=== PATIENT | female | born 1955 ===

== ENCOUNTER 2017-04-16 14:55 | Inpatient (IN) | payer OTHER ==
--- NOTE | 2017-04-16 17:22 | C.PDOC ---
History Of Present Illness 61 yr old female with PMHx of anxiety and HTN, presents to the ER with complaints of chest pain and SOB since morning. Patient states she was seen earlier at another institution and was discharged home. States afterwards she went to go see her psychiatrist who sent her to the ER for evaluation. Denies fever, chills, nausea, vomiting, weakness or numbness. Time Seen by Provider: 04/16/17 17:16 Chief Complaint (Nursing): Shortness Of Breath History Per: Patient History/Exam Limitations: no limitations Onset/Duration Of Symptoms: Sudden Onset (since morning) Past Medical History Reviewed: Historical Data, Nursing Documentation, Vital Signs Vital Signs: Last Vital Signs Temp 98.0 F 04/16/17 15:38 Pulse 91 H 04/16/17 20:33 Resp 18 04/16/17 20:33 BP 146/83 04/16/17 20:33 Pulse Ox 100 04/16/17 21:47 - Medical History PMH: Anxiety, Depression, HTN, Hypercholesterolemia Surgical History: Tonsillectomy Family History: States: No Known Family Hx - Social History Hx Alcohol Use: No Hx Substance Use: No - Immunization History Hx Tetanus Toxoid Vaccination: (unk) Hx Influenza Vaccination: No Hx Pneumococcal Vaccination: Yes (2016) Review Of Systems Except As Marked, All Systems Reviewed And Found Negative. Constitutional: Negative for: Fever, Chills Cardiovascular: Positive for: Chest Pain Respiratory: Positive for: Shortness of Breath Gastrointestinal: Negative for: Nausea, Vomiting Neurological: Negative for: Weakness, Numbness Physical Exam - Physical Exam Appears: Non-toxic, No Acute Distress Skin: Warm, Dry, No Rash Oral Mucosa: Moist Chest: Symmetrical, No Tenderness Cardiovascular: Rhythm Regular, No Murmur Respiratory: Normal Breath Sounds, No Rales, No Rhonchi, No Stridor, No Wheezing Gastrointestinal/Abdominal: Normal Exam, Soft, No Tenderness, No Guarding, No Rebound Extremity: Normal ROM, No Swelling Neurological/Psych: Oriented x3, Normal Speech, Normal Motor ED Course And Treatment - Laboratory Results Result Diagrams: 04/16/17 17:56 04/16/17 17:56 ECG: Interpreted By Me, Viewed By Me ECG Rhythm: Sinus Rhythm Interpretation Of ECG: No ST/T wave changes. Rate From EC (BPM) O2 Sat by Pulse Oximetry: 100 (RA) Pulse Ox Interpretation: Normal - CT Scan/US CTA Chest Other Rad Studies (CT/US): Interpreted By Me, Read By Radiologist CT/US Interpretation: EXAM DATE/TIME: 04/16/2017 6:35 PM. . CLINICAL HISTORY: 61 years old, female; Pain; Chest pain; Type not specified; Additional info: SOB elevated dimer. . TECHNIQUE: Axial computed tomographic angiography images of the chest with intravenous. contrast using pulmonary embolism protocol. All CT scans at this facility use. one or more dose reduction techniques, viz.: automated exposure control; ma/kV. adjustment per patient size (including targeted exams where dose is matched to. indication; i.e. head) ; or iterative reconstruction technique. MIP reconstructed images were created and reviewed. Coronal and sagittal reformatted images were created and reviewed. . CONTRAST: 100 mL of VISIPAQUE 320 administered intravenously. . COMPARISON: There are no prior studies for comparison. . FINDINGS: Artifacts: Motion artifact degrades image quality. Heart, aorta and Pulmonary arteries: Heart size is at the upper limits of. normal.There is trace fluid in pericardial recesses.There is no aneurysm or. dissection.There are vascular calcifications. There are no central pulmonary. emboli. Motion and bolus timing limits evaluation of peripheral vessels.. . Lungs: Trachea and main bronchi are patent.There is no pneumothorax. There. is no lobar or segmental consolidation. There is dependent atelectasis. There. are no effusions. . Thyroid: Thyroid is unremarkable. Bones/joints: There are degenerative changes in the osseus structures. Soft tissues: unremarkable. Lymph nodes: unremarkable. Upper abdomen: There are no acute abnormalities in the visualized portion of. the abdomen. There is fatty infiltration of the liver. There is a small cyst in. the dome of the liver on the right. Spleen is heterogeneous most likely due to. flow.Pancreas is atrophic with fatty infiltration. . IMPRESSION: No aneurysm, dissection or central pulmonary embolus, limited. evaluation of peripheral vessels due to patient motion and bolus timing; no. focal pneumonia. . Additional nonemergent findings as described above. - Physician Consult Information Time Consulting Physician Contacted: 21:15 Physician Contacted: Mignon Bernabe Outcome Of Conversation: Dr. Bernabe is bedside with patient and agrees upon admission of patient. Will obtain VQs in morning. Medical Decision Making Medical Decision Making: cp r/o acs, pe - PLAN: * CXR * EKG * Troponin * CBC * CMP * BNP * Urinalysis pt reaessesed sleeping innad. see nby dr chapman and dr bernabe bedside. accept for admission .suboptimal bolus of ct with lovenox obtain v/q in am Disposition - Disposition Disposition: HOSPITALIZED Disposition Time: 21:47 Condition: STABLE - Clinical Impression Clinical Impression: Chest pain, Elevated d-dimer - Scribe Statement The provider has reviewed the documentation as recorded by the Scribe Adriane Blas Provider Attestation: All medical record entries made by the Scribe were at my direction and personally dictated by me. I have reviewed the chart and agree that the record accurately reflects my personal performance of the history, physical exam, medical decision making, and the department course for this patient. I have also personally directed, reviewed, and agree with the discharge instructions and disposition. Decision To Admit - Pt Status Changed To: Hospital Disposition Of: Observation - . Bed Request Type: Telemetry Admitting Physician: Mignon Bernabe Patient Diagnosis: Chest pain, Elevated d-dimer
[2017-04-16 17:59] LABS: BASO # 0.1 K/uL (0.0-0.2); BASO % 0.8 % (0.0-2.0); HEMOGLOBIN 11.7 g/dL (11.0-16.0); LYMPH # 0.6 K/uL (1.0-4.3); LYMPH % 7.3 % (20.0-40.0); MEAN CELL VOLUME 82.3 fL (81.0-99.0); MEAN CORPUSCULAR HEMOGLOBIN 28.5 pg (27.0-31.0); MEAN CORPUSCULAR HGB CONC 34.6 g/dL (33.0-37.0); MEAN PLATELET VOLUME 8.6 fL (7.2-11.7); MONO # 0.2 K/uL (0.0-0.8); MONO % 2.4 % (0.0-10.0); NEUT # 7.4 K/uL (1.8-7.0); NEUT % 89.5 % (50.0-75.0); PLATELET COUNT 324 K/uL (130-400); RBC 4.12 Mil/uL (3.80-5.20); RED CELL DISTRIBUTION WIDTH 12.8 % (11.5-14.5); WHITE BLOOD COUNT 8.3 K/uL (4.8-10.8)
[2017-04-16 18:15] LABS: INR 1.2; PROTHROMBIN TIME 13.3 SECONDS (9.7-12.2)
[2017-04-16] MEDS ORDERED: Albuterol-Ipratrop 3 mg / 0.5 (3 ml) UD ONE (18:24)
[2017-04-16 18:34] LABS: ALB/GLOB RATIO 1.3 (1.0-2.1); ALBUMIN 4.1 g/dL (3.5-5.0); ALT/SGPT 42 U/L (9-52); AST/SGOT 30 U/L (14-36); BLOOD UREA NITROGEN 13 mg/dL (7-17); CALCIUM 9.7 mg/dl (8.6-10.4); GFR AFRICAN-AMERICAN > 60; GFR NON-AFRICAN AMERICAN 56
[2017-04-16] MEDS ORDERED: Potassium Chloride 20 mEq ER Tab PO STA (18:35)
[2017-04-16] MEDS ORDERED: Potassium Chloride 20 mEq ER Tab PO ONE (19:14)
[2017-04-16 19:23] LABS: B-TYPE NATRIURETIC PEPTIDE 346 pg/mL (0-900)
[2017-04-16] MEDS ORDERED: Iodixanol 320 MG/ML 100 ML BOTTLE IV ONE (19:23)
[2017-04-16 19:29] LABS: SQUAMOUS EPITHIAL 1 /hpf (0-5); URINE BACTERIA RARE (<OCC); URINE BILIRUBIN NEGATIVE (NEGATIVE); URINE BLOOD NEGATIVE (NEGATIVE); URINE CLARITY Hazy (Clear); URINE COLOR Amber (YELLOW); URINE GLUCOSE (UA) NORMAL (Normal); URINE HYALINE CAST >20 /lpf (0-2); URINE LEUKOCYTE ESTERASE NEG Leu/uL (Negative); URINE NITRATE NEGATIVE (NEGATIVE); URINE PROTEIN 1+ mg/dL (NEGATIVE); URINE UROBILINOGEN NORMAL mg/dL (0.2-1.0)
[2017-04-16 19:40] LABS: BANDS 2 % (0-2); LYMPHOCYTE 9 % (20-40); MONOCYTE 7 % (0-10); NEUTROPHIL 82 % (50-75); PLATELET ESTIMATE NORMAL (NORMAL); TOTAL CELLS COUNTED 100
--- NOTE | 2017-04-16 21:14 | CT ---
EXAM: CT Angiography Chest With Intravenous Contrast EXAM DATE/TIME: 04/16/2017 6:35 PM CLINICAL HISTORY: 61 years old, female; Pain; Chest pain; Type not specified; Additional info: SOB elevated dimer TECHNIQUE: Axial computed tomographic angiography images of the chest with intravenous contrast using pulmonary embolism protocol. All CT scans at this facility use one or more dose reduction techniques, viz.: automated exposure control; ma/kV adjustment per patient size (including targeted exams where dose is matched to indication; i.e. head); or iterative reconstruction technique. MIP reconstructed images were created and reviewed. Coronal and sagittal reformatted images were created and reviewed. CONTRAST: 100 mL of VISIPAQUE 320 administered intravenously. COMPARISON: There are no prior studies for comparison. FINDINGS: Artifacts: Motion artifact degrades image quality. Heart, aorta and Pulmonary arteries: Heart size is at the upper limits of normal.There is trace fluid in pericardial recesses.There is no aneurysm or dissection.There are vascular calcifications. There are no central pulmonary emboli. Motion and bolus timing limits evaluation of peripheral vessels.. Lungs: Trachea and main bronchi are patent.There is no pneumothorax. There is no lobar or segmental consolidation. There is dependent atelectasis. There are no effusions. Thyroid: Thyroid is unremarkable Bones/joints: There are degenerative changes in the osseus structures. Soft tissues: unremarkable Lymph nodes: unremarkable Upper abdomen: There are no acute abnormalities in the visualized portion of the abdomen. There is fatty infiltration of the liver. There is a small cyst in the dome of the liver on the right. Spleen is heterogeneous most likely due to flow.Pancreas is atrophic with fatty infiltration IMPRESSION: No aneurysm, dissection or central pulmonary embolus, limited evaluation of peripheral vessels due to patient motion and bolus timing; no focal pneumonia Additional nonemergent findings as described above.
[2017-04-16] MEDS ORDERED: Enoxaparin 150 mg Syringe SC STA (21:17)
[2017-04-16] MEDS ORDERED: Enoxaparin 80 mg Syringe ONE (21:28)
[2017-04-17] MEDS ORDERED: MethylPREDNISolone 40 mg Vial ONE (04:09)
[2017-04-17] MEDS: MethylPREDNISolone 40 mg Vial IVP SCH ×3 (04:10→21:32)
[2017-04-17] MEDS: Albuterol-Ipratrop 3 mg / 0.5 (3 ml) UD INH SCH ×4 (04:30→20:04)
[2017-04-17 05:42] LABS: HDL CHOLESTEROL 36 mg/dL (30-70)
[2017-04-17 05:56] LABS: TOTAL IRON BINDING CAPACITY 309 ug/dL (250-450)
[2017-04-17 06:07] LABS: % IRON SATURATION 21 (20-55); IRON 64 ug/dL (37-170); LDL CHOLESTEROL 111 mg/dL (0-129)
--- NOTE | 2017-04-17 06:34 | RAD ---
Chest x-ray single frontal view History: Chest pain. Comparison: None available. Findings: No focal infiltrate or effusion. Heart size within normal limits. Impression: No focal infiltrate or effusion.
--- NOTE | 2017-04-17 08:06 | CP.PCM.CON ---
History of Present Illness - History of Present Illness History of Present Illness: CC: Chest Pain HPI: 61 F presented to [facility] ER for chest pain. Chest pain atypical and non exertional. States she was in a different ER this morning and was sent home. Sugey has hx of DM, HTN and hyperlipidemia. Denies fever, chills and cough Review of Systems - Constitutional Constitutional: Chills, Headache - EENT Eyes: Blurred Vision - Cardiovascular Cardiovascular: Chest Pain - Respiratory Respiratory: Dyspnea - Gastrointestinal Gastrointestinal: absent: Abdominal Pain - Musculoskeletal Musculoskeletal: Myalgias Past Patient History - Past Social History Smoking Status: Never Smoked - CARDIAC Hx Hypercholesterolemia: Yes Hx Hypertension: Yes - ENDOCRINE/METABOLIC Hx Diabetes Mellitus Type 1: Yes - PSYCHIATRIC Hx Anxiety: Yes Hx Depression: Yes Hx Substance Use: No - SURGICAL HISTORY Hx Tonsillectomy: Yes - ANESTHESIA Hx Anesthesia: Yes Hx Anesthesia Reactions: No Meds Allergies/Adverse Reactions: Allergies Allergy/AdvReac Type Severity Reaction Status Date / Time No Known Allergies Allergy Unverified 04/16/17 15:44 - Medications Medications: Current Medications Acetaminophen (Tylenol 325mg Tab) 650 mg PO Q4H PRN PRN Reason: pain fever Albuterol/Ipratropium (Duoneb 3 Mg/0.5 Mg (3 Ml) Ud) 3 ml INH RQ6 [facility] Last Admin: 04/17/17 04:30 Dose: 3 ml Alprazolam (Xanax) 1 mg PO Q12 [facility] Enoxaparin Sodium (Lovenox) 40 mg SC DAILY [facility] Famotidine (Pepcid) 20 mg PO DAILY [facility] Gabapentin (Neurontin) 100 mg PO TID [facility] Methylprednisolone (Solu-Medrol) 40 mg IVP Q12 [facility] Last Admin: 04/17/17 04:10 Dose: 40 mg Physical Exam - Constitutional Appears: Well - Head Exam Head Exam: ATRAUMATIC - Eye Exam Eye Exam: EOMI, Normal appearance, PERRL Pupil Exam: NORMAL ACCOMODATION - ENT Exam ENT Exam: Mucous Membranes Moist - Respiratory Exam Respiratory Exam: Clear to Auscultation Bilateral - Cardiovascular Exam Cardiovascular Exam: REGULAR RHYTHM, +S1, +S2 - GI/Abdominal Exam GI & Abdominal Exam: Normal Bowel Sounds, Soft - Neurological Exam Neurological exam: Alert, CN II-XII Intact, Reflexes Normal - Psychiatric Exam Psychiatric exam: Normal Mood - Skin Skin Exam: Warm Results - Vital Signs Recent Vital Signs: Last Vital Signs Temp 98.3 F 04/17/17 06:38 Pulse 89 04/17/17 06:38 Resp 20 04/17/17 06:38 BP 122/84 04/17/17 06:38 Pulse Ox 96 04/17/17 06:38 - Labs Result Diagrams: 04/16/17 17:56 04/16/17 17:56 Labs: Laboratory Results - last 24 hr 04/16/17 04/16/17 04/16/17 17:56 17:56 17:56 WBC 8.3 RBC 4.12 Hgb 11.7 Hct 33.9 L MCV 82.3 MCH 28.5 MCHC 34.6 RDW 12.8 Plt Count 324 MPV 8.6 Neut % (Auto) 89.5 H Lymph % (Auto) 7.3 L [place] % (Auto) 2.4 Eos % (Auto) 0.0 Baso % (Auto) 0.8 Neut # 7.4 H Lymph # 0.6 L [place] # 0.2 Eos # 0.0 Baso # 0.1 Neutrophils % (Manual) 82 H Band Neutrophils % 2 Lymphocytes % (Manual) 9 L Monocytes % (Manual) 7 Platelet Estimate Normal PT 13.3 H INR 1.2 APTT 29 D-Dimer, Quantitative 478 H Sodium 128 L Potassium 3.2 L Chloride 97 L Carbon Dioxide 18 L Anion Gap 16 BUN 13 Creatinine 1.0 Est GFR ( Amer) > 60 Est GFR (Non-Af Amer) 56 POC Glucose (mg/dL) Random Glucose 175 H Calcium 9.7 Iron TIBC % Saturation Total Bilirubin 0.5 AST 30 ALT 42 Alkaline Phosphatase 97 Troponin I < 0.0120 NT-Pro-B Natriuret Pep 346 Total Protein 7.2 Albumin 4.1 Globulin 3.1 Albumin/Globulin Ratio 1.3 Triglycerides Cholesterol LDL Cholesterol Direct HDL Cholesterol Vitamin B12 Urine Color Urine Clarity Urine pH Ur Specific [place] Urine Protein Urine Glucose (UA) Urine Ketones Urine Blood Urine Nitrate Urine Bilirubin Urine Urobilinogen Ur Leukocyte Esterase Urine WBC (Auto) Urine RBC (Auto) Ur Squamous Epith Cells Urine Bacteria Hyaline Casts 04/16/17 04/17/17 04/17/17 19:13 05:20 05:20 WBC RBC Hgb Hct MCV MCH MCHC RDW Plt Count MPV Neut % (Auto) Lymph % (Auto) [place] % (Auto) Eos % (Auto) Baso % (Auto) Neut # Lymph # [place] # Eos # Baso # Neutrophils % (Manual) Band Neutrophils % Lymphocytes % (Manual) Monocytes % (Manual) Platelet Estimate PT INR APTT D-Dimer, Quantitative Sodium Potassium Chloride Carbon Dioxide Anion Gap BUN Creatinine Est GFR ( Amer) Est GFR (Non-Af Amer) POC Glucose (mg/dL) Random Glucose Calcium Iron 64 TIBC 309 % Saturation 21 Total Bilirubin AST ALT Alkaline Phosphatase Troponin I NT-Pro-B Natriuret Pep Total Protein Albumin Globulin Albumin/Globulin Ratio Triglycerides 188 H Cholesterol 188 LDL Cholesterol Direct 111 HDL Cholesterol 36 Vitamin B12 775 Urine Color [place] Urine Clarity Hazy Urine pH 7.0 Ur Specific [place] 1.016 Urine Protein 1+ H Urine Glucose (UA) Normal Urine Ketones 1+ H Urine Blood Negative Urine Nitrate Negative Urine Bilirubin Negative Urine Urobilinogen Normal Ur Leukocyte Esterase Neg Urine WBC (Auto) 1 Urine RBC (Auto) < 1 Ur Squamous Epith Cells 1 Urine Bacteria Rare Hyaline Casts >20 H 04/17/17 06:41 WBC RBC Hgb Hct MCV MCH MCHC RDW Plt Count MPV Neut % (Auto) Lymph % (Auto) [place] % (Auto) Eos % (Auto) Baso % (Auto) Neut # Lymph # [place] # Eos # Baso # Neutrophils % (Manual) Band Neutrophils % Lymphocytes % (Manual) Monocytes % (Manual) Platelet Estimate PT INR APTT D-Dimer, Quantitative Sodium Potassium Chloride Carbon Dioxide Anion Gap BUN Creatinine Est GFR ( Amer) Est GFR (Non-Af Amer) POC Glucose (mg/dL) 144 H Random Glucose Calcium Iron TIBC % Saturation Total Bilirubin AST ALT Alkaline Phosphatase Troponin I NT-Pro-B Natriuret Pep Total Protein Albumin Globulin Albumin/Globulin Ratio Triglycerides Cholesterol LDL Cholesterol Direct HDL Cholesterol Vitamin B12 Urine Color Urine Clarity Urine pH Ur Specific [place] Urine Protein Urine Glucose (UA) Urine Ketones Urine Blood Urine Nitrate Urine Bilirubin Urine Urobilinogen Ur Leukocyte Esterase Urine WBC (Auto) Urine RBC (Auto) Ur Squamous Epith Cells Urine Bacteria Hyaline Casts Assessment & Plan - Assessment and Plan (Free Text) Assessment: 61 F with multiple risk factors c/o Chest pain: Atypical Positive d dimer Trop x 1 negative EKG: NSR Unlikely Acute Coronary syndrome CTA ordered Check ECHO Will perform stress test prior to discharge-Brent ASA 81 daily Check Hgb A1C DVT and GI prophylaxis NS for Hyponatremia
[2017-04-17] MEDS: Enoxaparin 40 mg Syringe SC SCH (10:35)
[2017-04-17] MEDS: oxyCODONE 20 mg ER Tab (oxyCONTIN) PO SCH ×2 (10:36→22:00)
[2017-04-17] MEDS: Sodium Chloride 0.9% 1,000 ML IV SCH ×2 (10:38→21:30)
--- NOTE | 2017-04-17 10:59 | HP ---
The patient was seen and examined in the emergency room on 04/16/2017. CHIEF COMPLAINT: Shortness of breath. HISTORY OF PRESENT ILLNESS: Ms. Jeane Ramires is a 61-year-old female with a past medical history of anxiety and hypertension, who came to the emergency room complaining of chest pain and shortness of breath this morning. The patient states that she was seen earlier in another institute and was discharged home with a diagnosis of upper respiratory tract infection. The patient states that afterwards she went to go see her psychiatrist, who sent her to the emergency room for evaluation of shortness of breath. Denies fevers, chills, nausea, vomiting, diarrhea, hematuria, or hematochezia. Shortness of breath started suddenly as per patient. PAST MEDICAL HISTORY: Anxiety, depression, hypertension, and hypercholesterolemia. PAST SURGICAL HISTORY: Tonsillectomy. FAMILY HISTORY: No related family history. HABITS: No alcohol. No substance abuse. No drugs. ALLERGIES: NO KNOWN ALLERGIES. HOME MEDICATIONS: Tramadol, Xanax, gabapentin as per patient. REVIEW OF SYSTEMS: The patient was seen and examined at the bedside in the emergency room, bed #11. Over there, looks a little bit anxious, complaining about shortness of breath. No nausea, vomiting, or diarrhea. No hematuria or hematochezia. No swelling of the legs. No chest pain. No palpitations. No headache or dizziness. No fever. No chills. PHYSICAL EXAMINATION VITAL SIGNS: Temperature 98.0, pulse 91, blood pressure 146/83, respiratory rate 18. HEENT: Head normocephalic, atraumatic. Eyes, PERRLA. Extraocular movements intact. Conjunctivae clear. Nose patent. Mucous membranes moist. NECK: Supple. No carotid bruits, JVD, or thyromegaly. CHEST: Bilaterally symmetrical. HEART: S1 and S2 positive. LUNGS: Clear to auscultation. ABDOMEN: Soft. Bowel sounds are present. No organomegaly. EXTREMITIES: No edema. No cyanosis. NEUROLOGIC: The patient is awake and alert. Moving all 4 extremities, with no focal deficits. LABORATORY DATA: White blood cells 8.3, hemoglobin 11.7, hematocrit 33.9, platelets 324. Sodium 128, potassium 3.2, BUN 13, creatinine 1.0, glucose 175. ASSESSMENT AND PLAN: Ms. Jeane Ramires is a 61-year-old female, with hyponatremia, hypokalemia, hypochloremia, and hyperglycemia, replaced in the ER, proteinuria, and ketonuria, who came with shortness of breath. CAT scan of the chest done, showed no aneurysm, dissection, or central pulmonary embolism and limited evaluation of peripheral vessels , but no focal pneumonia, fatty liver, pancreas atrophic with fatty infiltrates, atelectasis in the lungs, no pleural effusion. The patient has a history of anxiety, depression, hypertension, hypercholesterolemia, came with shortness of breath. Discussion done with ER physician. The patient admitted for chest pain and elevated D-dimer. We will call pulmonary consult with Dr. Jairo Jackson. Potassium is replaced, and Lovenox given. We will restart her home medications, gabapentin, tramadol, and Xanax. GI and deep venous thrombosis prophylaxis. Repeat labs. We will follow. Mignon Bernabe MD [id number]
[2017-04-17 11:58] LABS: BASO % 0.5 % (0.0-2.0); HEMOGLOBIN 11.4 g/dL (11.0-16.0); LYMPH # 0.9 K/uL (1.0-4.3); LYMPH % 9.5 % (20.0-40.0); MEAN CELL VOLUME 82.7 fL (81.0-99.0); MEAN CORPUSCULAR HEMOGLOBIN 28.7 pg (27.0-31.0); MEAN CORPUSCULAR HGB CONC 34.7 g/dL (33.0-37.0); MEAN PLATELET VOLUME 9.1 fL (7.2-11.7); MONO # 0.3 K/uL (0.0-0.8); MONO % 3.4 % (0.0-10.0); NEUT # 8.6 K/uL (1.8-7.0); NEUT % 86.6 % (50.0-75.0); PLATELET COUNT 322 K/uL (130-400); RBC 3.96 Mil/uL (3.80-5.20); RED CELL DISTRIBUTION WIDTH 13.2 % (11.5-14.5); WHITE BLOOD COUNT 9.9 K/uL (4.8-10.8)
[2017-04-17] MEDS: (Novolin R) Insulin Human Regular 100 units/ml vial SC SCH ×3 (12:01→21:26)
[2017-04-17 12:11] LABS: ALB/GLOB RATIO 1.4 (1.0-2.1); ALBUMIN 4.3 g/dL (3.5-5.0); ALT/SGPT 37 U/L (9-52); AST/SGOT 36 U/L (14-36); BLOOD UREA NITROGEN 18 mg/dL (7-17); CALCIUM 9.7 mg/dl (8.6-10.4); GFR AFRICAN-AMERICAN > 60; GFR NON-AFRICAN AMERICAN > 60; MAGNESIUM 1.2 mg/dL (1.6-2.3)
[2017-04-17 12:19] LABS: LYMPHOCYTE 4 % (20-40); MONOCYTE 4 % (0-10); NEUTROPHIL 92 % (50-75); PLATELET ESTIMATE NORMAL (NORMAL); TOTAL CELLS COUNTED 100
[2017-04-17 12:20] LABS: ANISOCYTOSIS SLIGHT
[2017-04-17 12:21] LABS: POLYCHROMIC SLIGHT
[2017-04-17 12:23] LABS: CK-MB 2.79 ng/mL (0.0-3.38)
--- NOTE | 2017-04-17 15:00 | CP.PCM.CON ---
History of Present Illness - History of Present Illness History of Present Illness: reason for consultation: shortness of breath 61-year-old female with asthma, hypertension, diabetes, anxiety presented to emergency room with chest pain and shortness of breath started yesterday morning. Patient was seen in the emergency room at another hospital and discharged home the diagnosis off anxiety. Denies fever chills, denies chest pain also complaining off slight cough. CT angio showed no pulmonary embolism or pneumonia. Review of Systems - Review of Systems All systems: reviewed and no additional remarkable complaints except (shortness of breath and cough) Past Patient History - Past Social History Smoking Status: Never Smoked - CARDIAC Hx Hypercholesterolemia: Yes Hx Hypertension: Yes - ENDOCRINE/METABOLIC Hx Diabetes Mellitus Type 1: Yes - MUSCULOSKELETAL/RHEUMATOLOGICAL Hx Falls: No - PSYCHIATRIC Hx Anxiety: Yes Hx Depression: Yes Hx Substance Use: No - SURGICAL HISTORY Hx Tonsillectomy: Yes - ANESTHESIA Hx Anesthesia: Yes Hx Anesthesia Reactions: No Meds Allergies/Adverse Reactions: Allergies Allergy/AdvReac Type Severity Reaction Status Date / Time No Known Allergies Allergy Unverified 04/16/17 15:44 - Medications Medications: Current Medications Acetaminophen (Tylenol 325mg Tab) 650 mg PO Q4H PRN PRN Reason: pain fever Albuterol/Ipratropium (Duoneb 3 Mg/0.5 Mg (3 Ml) Ud) 3 ml INH RQ6 [facility] Last Admin: 04/17/17 13:40 Dose: 3 ml Alprazolam (Xanax) 1 mg PO Q12 [facility] Last Admin: 04/17/17 10:32 Dose: 1 mg Aspirin (Ecotrin) 81 mg PO DAILY [facility] Last Admin: 04/17/17 10:35 Dose: 81 mg Enoxaparin Sodium (Lovenox) 40 mg SC DAILY [facility] Last Admin: 04/17/17 10:35 Dose: 40 mg Famotidine (Pepcid) 20 mg PO DAILY [facility] Last Admin: 04/17/17 10:32 Dose: 20 mg Gabapentin (Neurontin) 100 mg PO TID [facility] Last Admin: 04/17/17 10:32 Dose: 100 mg Sodium Chloride (Sodium Chloride 0.9%) 1,000 mls @ 80 mls/hr IV .[id number] [facility] Stop: 04/18/17 23:59 Last Admin: 04/17/17 10:38 Dose: 80 mls/hr Insulin Human Regular (Novolin R) 0 unit SC ACHS [facility] PRN Reason: Protocol Lisinopril (Zestril) 10 mg PO DAILY [facility] Last Admin: 04/17/17 10:32 Dose: 10 mg Metformin HCl (Glucophage Xr) 1,000 mg PO DAILY [facility] Methylprednisolone (Solu-Medrol) 40 mg IVP Q12 [facility] Last Admin: 04/17/17 10:32 Dose: 40 mg Oxycodone HCl (Oxycontin Extended Release Tab) 20 mg PO Q12 [facility] Last Admin: 04/17/17 10:36 Dose: 20 mg Tramadol HCl (Ultram) 50 mg PO TID [facility] Last Admin: 04/17/17 10:35 Dose: 50 mg Zolpidem Tartrate (Ambien) 5 mg PO HS PRN PRN Reason: Insomnia Physical Exam - Head Exam Head Exam: ATRAUMATIC, NORMOCEPHALIC - Eye Exam Eye Exam: Normal appearance - ENT Exam ENT Exam: Mucous Membranes Moist - Neck Exam Neck exam: Positive for: Normal Inspection - Respiratory Exam Respiratory Exam: Clear to Auscultation Bilateral - Cardiovascular Exam Cardiovascular Exam: REGULAR RHYTHM - GI/Abdominal Exam GI & Abdominal Exam: Normal Bowel Sounds, Soft - Extremities Exam Extremities exam: Positive for: normal inspection Results - Vital Signs Recent Vital Signs: Last Vital Signs Temp 98.3 F 04/17/17 06:38 Pulse 91 H 04/17/17 14:20 Resp 15 04/17/17 14:20 BP 167/70 H 04/17/17 11:19 Pulse Ox 100 04/17/17 14:20 - Labs Result Diagrams: 04/17/17 11:54 04/17/17 11:54 Labs: Laboratory Results - last 24 hr 04/16/17 04/16/17 04/16/17 17:56 17:56 17:56 WBC 8.3 RBC 4.12 Hgb 11.7 Hct 33.9 L MCV 82.3 MCH 28.5 MCHC 34.6 RDW 12.8 Plt Count 324 MPV 8.6 Neut % (Auto) 89.5 H Lymph % (Auto) 7.3 L [place] % (Auto) 2.4 Eos % (Auto) 0.0 Baso % (Auto) 0.8 Neut # 7.4 H Lymph # 0.6 L [place] # 0.2 Eos # 0.0 Baso # 0.1 Neutrophils % (Manual) 82 H Band Neutrophils % 2 Lymphocytes % (Manual) 9 L Monocytes % (Manual) 7 Platelet Estimate Normal Polychromasia Anisocytosis (manual) PT 13.3 H INR 1.2 APTT 29 D-Dimer, Quantitative 478 H Sodium 128 L Potassium 3.2 L Chloride 97 L Carbon Dioxide 18 L Anion Gap 16 BUN 13 Creatinine 1.0 Est GFR ( Amer) > 60 Est GFR (Non-Af Amer) 56 POC Glucose (mg/dL) Random Glucose 175 H Calcium 9.7 Phosphorus Magnesium Iron TIBC % Saturation Total Bilirubin 0.5 AST 30 ALT 42 Alkaline Phosphatase 97 Total Creatine Kinase CK-MB (Mass) Troponin I < 0.0120 NT-Pro-B Natriuret Pep 346 Total Protein 7.2 Albumin 4.1 Globulin 3.1 Albumin/Globulin Ratio 1.3 Triglycerides Cholesterol LDL Cholesterol Direct HDL Cholesterol Vitamin B12 Urine Color Urine Clarity Urine pH Ur Specific [place] Urine Protein Urine Glucose (UA) Urine Ketones Urine Blood Urine Nitrate Urine Bilirubin Urine Urobilinogen Ur Leukocyte Esterase Urine WBC (Auto) Urine RBC (Auto) Ur Squamous Epith Cells Urine Bacteria Hyaline Casts 04/16/17 04/17/17 04/17/17 19:13 05:20 05:20 WBC RBC Hgb Hct MCV MCH MCHC RDW Plt Count MPV Neut % (Auto) Lymph % (Auto) [place] % (Auto) Eos % (Auto) Baso % (Auto) Neut # Lymph # [place] # Eos # Baso # Neutrophils % (Manual) Band Neutrophils % Lymphocytes % (Manual) Monocytes % (Manual) Platelet Estimate Polychromasia Anisocytosis (manual) PT INR APTT D-Dimer, Quantitative Sodium Potassium Chloride Carbon Dioxide Anion Gap BUN Creatinine Est GFR ( Amer) Est GFR (Non-Af Amer) POC Glucose (mg/dL) Random Glucose Calcium Phosphorus Magnesium Iron 64 TIBC 309 % Saturation 21 Total Bilirubin AST ALT Alkaline Phosphatase Total Creatine Kinase CK-MB (Mass) Troponin I NT-Pro-B Natriuret Pep Total Protein Albumin Globulin Albumin/Globulin Ratio Triglycerides 188 H Cholesterol 188 LDL Cholesterol Direct 111 HDL Cholesterol 36 Vitamin B12 775 Urine Color [place]ma Urine Clarity Hazy Urine pH 7.0 Ur Specific [place] 1.016 Urine Protein 1+ H Urine Glucose (UA) Normal Urine Ketones 1+ H Urine Blood Negative Urine Nitrate Negative Urine Bilirubin Negative Urine Urobilinogen Normal Ur Leukocyte Esterase Neg Urine WBC (Auto) 1 Urine RBC (Auto) < 1 Ur Squamous Epith Cells 1 Urine Bacteria Rare Hyaline Casts >20 H 04/17/17 04/17/17 04/17/17 06:41 11:54 11:54 WBC 9.9 RBC 3.96 Hgb 11.4 Hct 32.7 L MCV 82.7 MCH 28.7 MCHC 34.7 RDW 13.2 Plt Count 322 MPV 9.1 Neut % (Auto) 86.6 H Lymph % (Auto) 9.5 L [place] % (Auto) 3.4 Eos % (Auto) 0.0 Baso % (Auto) 0.5 Neut # 8.6 H Lymph # 0.9 L [place] # 0.3 Eos # 0.0 Baso # 0.0 Neutrophils % (Manual) 92 H Band Neutrophils % Lymphocytes % (Manual) 4 L Monocytes % (Manual) 4 Platelet Estimate Normal Polychromasia Slight Anisocytosis (manual) Slight PT INR APTT D-Dimer, Quantitative Sodium 132 Potassium 3.7 Chloride 98 Carbon Dioxide 21 L Anion Gap 17 BUN 18 H Creatinine 0.9 Est GFR ( Amer) > 60 Est GFR (Non-Af Amer) > 60 POC Glucose (mg/dL) 144 H Random Glucose 114 H Calcium 9.7 Phosphorus 1.6 L Magnesium 1.2 L Iron TIBC % Saturation Total Bilirubin 0.5 AST 36 ALT 37 Alkaline Phosphatase 92 Total Creatine Kinase 65 CK-MB (Mass) 2.79 Troponin I < 0.0120 NT-Pro-B Natriuret Pep Total Protein 7.4 Albumin 4.3 Globulin 3.1 Albumin/Globulin Ratio 1.4 Triglycerides Cholesterol LDL Cholesterol Direct HDL Cholesterol Vitamin B12 Urine Color Urine Clarity Urine pH Ur Specific [place] Urine Protein Urine Glucose (UA) Urine Ketones Urine Blood Urine Nitrate Urine Bilirubin Urine Urobilinogen Ur Leukocyte Esterase Urine WBC (Auto) Urine RBC (Auto) Ur Squamous Epith Cells Urine Bacteria Hyaline Casts Assessment & Plan (1) Asthma exacerbation Assessment and Plan: continue nebulizer treatment and IV steroids Peak flow q. shift Patient seen by underground heavy equipment operator Echocardiogram Pulmonary function test as outpatient Status: Acute (2) Chest pain Status: Acute
--- NOTE | 2017-04-17 18:30 | CARD ---
APPROVED REPORT EXAM: Two-dimensional and M-mode echocardiogram with Doppler and color Doppler. Other Information Quality : GoodRhythm : INDICATION Chest Pain 2D DIMENSIONS IVSd1.3 (0.7-1.1cm)LVDd4.4 (3.9-5.9cm) PWd1.3 (0.7-1.1cm)LVDs3.1 (2.5-4.0cm) FS (%) 30.2 %LVEF (%)57.7 (>50%) M-Mode DIMENSIONS Left Atrium (MM)4.25 (2.5-4.0cm)Aortic Root2.70 (2.2-3.7cm) Aortic Cusp Exc.2.00 (1.5-2.0cm) Mitral Valve MV E Mpirkbca057.8cm/sMV A Wjuckshl974.6cm/sE/A ratio1.0 TDI E/Lateral E'0.0E/Medial E'0.0 Tricuspid Valve TR Peak Ncnyylji609an/sTR Peak Gr.[id number] LEFT VENTRICLE The left ventricle is normal size. There is mild concentric left ventricular hypertrophy. The left ventricular function is normal. The left ventricular ejection fraction is within the normal range. 62% No regional wall motion abnormalities noted. The left ventricular diastolic function is indeterminate. No left ventricle thrombus noted on this study. There is no ventricular septal defect visualized. There is no left ventricular aneurysm. There is no mass noted in the left ventricle. RIGHT VENTRICLE The right ventricle is normal size. There is normal right ventricular wall thickness. The right ventricular systolic function is normal. ATRIA The left atrium size is normal. The right atrium size is normal. The interatrial septum is intact with no evidence for an atrial septal defect. AORTIC VALVE The aortic valve is normal in structure and function. No aortic regurgitation is present. There is no aortic valvular stenosis. There is no aortic valvular vegetation. MITRAL VALVE The mitral valve is normal in structure and function. There is no evidence of mitral valve prolapse. There is no mitral valve stenosis. There is no mitral valve regurgitation noted. TRICUSPID VALVE The tricuspid valve is normal in structure and function. There is no tricuspid valve regurgitation noted. There is no tricuspid valve prolapse or vegetation. There is no tricuspid valve stenosis. PULMONIC VALVE The pulmonary valve is normal in structure and function. There is no pulmonic valvular regurgitation. There is no pulmonic valvular stenosis. GREAT VESSELS The aortic root is normal in size. The ascending aorta is normal in size. The pulmonary artery is normal. The IVC is normal in size and collapses >50% with inspiration. PERICARDIAL EFFUSION The pericardium appears normal. There is no pleural effusion. <Conclusion> Normal left ventricular systolic function and doppler. There is mild concentric left ventricular hypertrophy.
[2017-04-18 00:25] LABS: CK-MB 3.21 ng/mL (0.0-3.38)
[2017-04-18] MEDS: Sodium Chloride 0.9% 1,000 ML IV SCH ×4 (03:15→23:06)
--- NOTE | 2017-04-18 04:19 | PN ---
DATE: SUBJECTIVE: The patient seen and examined in the bedside, still coughing heavy, shortness of breath, but no nausea, vomiting or diarrhea. No hematuria or hematochezia. No swelling of the legs. No chest pain or palpitation. No headache or dizziness. PHYSICAL EXAMINATION: VITAL SIGNS: Temperature 98.6, pulse 73, blood pressure 137/69, respiratory rate 18. HEENT: Head normocephalic, atraumatic. Eyes, PERRLA. Extraocular movements intact. Conjunctivae clear. Nose patent. Mucous membranes moist. NECK: Supple. No carotid bruits, JVD, or thyromegaly. CHEST: Bilaterally symmetrical. HEART: S1 and S2 positive. LUNGS: Clear to auscultation. ABDOMEN: Soft. Bowel sounds are present. No organomegaly. EXTREMITIES: No edema. No cyanosis. NEUROLOGIC: The patient is awake and alert. Moving all 4 extremities, with no focal deficits. MEDICATIONS: Ambien, DuoNeb, Ecotrin, Glucophage, Lovenox, Neurontin, Novolin, oxycodone, Pepcid, Adnexa, Solu-Medrol, Tylenol, Tramadol, Xanax, Zestril. LABORATORY DATA: White blood cells 9.9, hemoglobin 11.4, hematocrit 32.7, platelets 336. Glucose 130. ASSESSMENT AND PLAN: Ms. Jeane Ramires is a 61-year-old lady with diabetes mellitus, hypophosphatemia, hypomagnesemia, hypertriglyceridemia, proteinuria, ketonuria. The patient is seen by Dr. Jairo Jackson, roulette dealer and history of asthma, hypertension, diabetes mellitus, anxiety, has chest pain, exacerbation of asthma, continue on nebulizer treatment, IV steroid, peak flow . The patient is seen by the adjunct phlebotomy instructor and roulette dealer. Chest pain, that nonexertional. The patient of admission that morning, claim that nothing was done there. So came to [facility] has multiple risk factors, positive D-dimers, troponin negative, unlikely acute coronary syndrome, CT ordered, check echo. Wednesday, the patient will go for stress test. Continue aspirin, check hemoglobin A1c, deep venous thrombosis and gastrointestinal prophylaxis. Repeat labs. We will follow up. Mignon Bernabe MD [facility] # [id number] MANISHA
[2017-04-18] MEDS: Albuterol-Ipratrop 3 mg / 0.5 (3 ml) UD INH SCH ×3 (07:25→19:27)
[2017-04-18] MEDS: (Novolin R) Insulin Human Regular 100 units/ml vial SC SCH ×4 (08:17→23:03)
[2017-04-18 08:53] LABS: HEMOGLOBIN 10.7 g/dL (11.0-16.0); MEAN CELL VOLUME 83.2 fL (81.0-99.0); MEAN CORPUSCULAR HEMOGLOBIN 27.9 pg (27.0-31.0); MEAN CORPUSCULAR HGB CONC 33.5 g/dL (33.0-37.0); MEAN PLATELET VOLUME 8.9 fL (7.2-11.7); RBC 3.83 Mil/uL (3.80-5.20); RED CELL DISTRIBUTION WIDTH 13.6 % (11.5-14.5); WHITE BLOOD COUNT 8.7 K/uL (4.8-10.8)
[2017-04-18 09:03] LABS: BLOOD UREA NITROGEN 14 mg/dL (7-17); CALCIUM 9.2 mg/dl (8.6-10.4); GFR AFRICAN-AMERICAN > 60; GFR NON-AFRICAN AMERICAN > 60
[2017-04-18] MEDS: MethylPREDNISolone 40 mg Vial IVP SCH ×2 (09:47→23:04)
[2017-04-18] MEDS: Enoxaparin 40 mg Syringe SC SCH (09:51)
[2017-04-18] MEDS: oxyCODONE 20 mg ER Tab (oxyCONTIN) PO SCH ×2 (10:31→23:03)
--- NOTE | 2017-04-18 19:57 | CP.PCM.PN ---
Subjective - Date & Time of Evaluation Date of Evaluation: 04/18/17 Time of Evaluation: 08:05 - Subjective Subjective: Patient with multiple risk factors Troponin and EKG unremarkable ECHO: Mild LVH otherwise unramarkable For stress test in am NPO after MN except meds Objective - Vital Signs/Intake and Output Vital Signs (last 24 hours): Temp Pulse Resp BP Pulse Ox 98.4 F 76 20 162/84 H 98 04/18/17 15:23 04/18/17 16:08 04/18/17 15:23 04/18/17 15:23 04/18/17 15:23 - Medications Medications: Current Medications Acetaminophen (Tylenol 325mg Tab) 650 mg PO Q4H PRN PRN Reason: pain fever Albuterol/Ipratropium (Duoneb 3 Mg/0.5 Mg (3 Ml) Ud) 3 ml INH RQ6 [facility] Last Admin: 04/18/17 19:27 Dose: 3 ml Alprazolam (Xanax) 1 mg PO Q12 [facility] Last Admin: 04/18/17 09:31 Dose: Not Given Aspirin (Ecotrin) 81 mg PO DAILY [facility] Last Admin: 04/18/17 09:47 Dose: 81 mg Enoxaparin Sodium (Lovenox) 40 mg SC DAILY [facility] Last Admin: 04/18/17 09:51 Dose: 40 mg Famotidine (Pepcid) 20 mg PO DAILY [facility] Last Admin: 04/18/17 09:46 Dose: 20 mg Gabapentin (Neurontin) 100 mg PO TID [facility] Last Admin: 04/18/17 17:52 Dose: 100 mg Sodium Chloride (Sodium Chloride 0.9%) 1,000 mls @ 80 mls/hr IV .[id number] [facility] Stop: 04/18/17 23:59 Last Admin: 04/18/17 17:53 Dose: 80 mls/hr Insulin Human Regular (Novolin R) 0 unit SC ACHS [facility] PRN Reason: Protocol Last Admin: 04/18/17 17:24 Dose: Not Given Lisinopril (Zestril) 10 mg PO DAILY [facility] Last Admin: 04/18/17 09:47 Dose: 10 mg Metformin HCl (Glucophage Xr) 1,000 mg PO DAILY [facility] Last Admin: 04/18/17 10:31 Dose: 1,000 mg Methylprednisolone (Solu-Medrol) 40 mg IVP Q12 [facility] Last Admin: 04/18/17 09:47 Dose: 40 mg Oxycodone HCl (Oxycontin Extended Release Tab) 20 mg PO Q12H [facility] Last Admin: 04/18/17 10:31 Dose: 20 mg Tramadol HCl (Ultram) 50 mg PO TID [facility] Last Admin: 04/18/17 17:52 Dose: 50 mg Zolpidem Tartrate (Ambien) 5 mg PO HS PRN PRN Reason: Insomnia Last Admin: 04/17/17 22:57 Dose: 5 mg - Labs Labs: 04/18/17 08:43 04/18/17 08:43 PT 13.3 SECONDS (9.7-12.2) H 04/16/17 17:56 INR 1.2 04/16/17 17:56 APTT 29 SECONDS (21-34) 04/16/17 17:56
[2017-04-19] MEDS: Albuterol-Ipratrop 3 mg / 0.5 (3 ml) UD INH SCH ×4 (02:02→20:32)
--- NOTE | 2017-04-19 04:46 | PN ---
DATE: SUBJECTIVE: The patient is a 61-year-old female. The patient was seen and examined in the bedside, looking comfortable. Today in the morning, she has episodes of anxiety. As per the patient, she cannot sleep at night even if she is getting Ambien. Still coughing, even cough is better. Shortness of breath is better, but still having shortness of breath. No fever. No chills. No nausea, vomiting, or diarrhea. No headache. No dizziness. PHYSICAL EXAMINATION: VITAL SIGNS: Temperature 98.4, pulse 76, respiratory rate 20, blood pressure 162/84, pulse oximetry 98. HEENT: Head is normocephalic and atraumatic. Eyes, PERRLA. Extraocular muscles are intact. Conjunctivae are clear. Nose is patent. Mucous membranes are moist. NECK: Supple. No carotid bruits, JVD, or thyromegaly. CHEST: Bilaterally symmetrical. HEART: S1 and S2 positive. LUNGS: Clear to auscultation. ABDOMEN: Soft. Bowel sounds are present. No organomegaly. EXTREMITIES: No edema. No cyanosis. NEUROLOGIC: The patient is awake and alert. Moving all four extremities. No focal deficits. MEDICATIONS: Tylenol, DuoNeb, Xanax, Ecotrin, Lovenox, Pepcid, Neurontin, Adnexa, Novolin, Zestril, Glucophage, Solu-Medrol, OxyContin, Ultram, and Ambien for insomnia. LABORATORY DATA: White blood cells 8.7, hemoglobin 10.7, hematocrit 31.9, and platelets 322. Sodium 135, potassium 3.9, BUN 14, creatinine 0.8, and glucose 138. ASSESSMENT AND PLAN: Ms. Jeane Ramires is a 63-year-old female with anemia and hyperglycemia, came with chest pain and dyspnea. Incubator Tender, Dr. Lazaro is on the case. According to him, the patient with multiple factors. Troponin and EKG are unremarkable. Echo, mild left ventricular hypertrophy; otherwise, unremarkable for stress test in the a.m., n.p.o after midnight except medications. Anxiety, Xanax given. For insomnia, the patient is getting Ambien. Seen by Dr. Jairo Jackson, mailing machine helper, critical care watch caser. She has hypertension and diabetes mellitus. The patient was seen in the emergency room of the hospital, discharged with diagnosis of anxiety. Then came in [facility]. CT angiogram showed no pulmonary embolism or pneumonia. Asthma exacerbation, continue nebulizer treatment, intravenous steroids, peak flow q. shift, wanted to do pulmonary function test as outpatient. Echocardiography done. CT chest done. History of hypophosphatemia, hypomagnesemia, hypertriglyceridemia, proteinuria, and ketonuria. Gastrointestinal and deep venous thrombosis prophylaxis. Repeat labs. We will follow. Mignon Bernabe MD
[2017-04-19 07:19] LABS: HEMOGLOBIN 10.9 g/dL (11.0-16.0); MEAN CELL VOLUME 84.7 fL (81.0-99.0); MEAN CORPUSCULAR HEMOGLOBIN 28.3 pg (27.0-31.0); MEAN CORPUSCULAR HGB CONC 33.4 g/dL (33.0-37.0); MEAN PLATELET VOLUME 8.9 fL (7.2-11.7); RBC 3.84 Mil/uL (3.80-5.20); RED CELL DISTRIBUTION WIDTH 13.8 % (11.5-14.5); WHITE BLOOD COUNT 8.4 K/uL (4.8-10.8)
[2017-04-19] MEDS ORDERED: Aminophylline 25 mg/ml Inj ONE (07:45)
[2017-04-19] MEDS: (Novolin R) Insulin Human Regular 100 units/ml vial SC SCH ×4 (08:16→22:00)
[2017-04-19 08:18] LABS: BLOOD UREA NITROGEN 11 mg/dL (7-17); GFR AFRICAN-AMERICAN > 60; GFR NON-AFRICAN AMERICAN > 60
[2017-04-19] MEDS: Enoxaparin 40 mg Syringe SC SCH (11:00)
[2017-04-19] MEDS: MethylPREDNISolone 40 mg Vial IVP SCH ×2 (11:00→22:04)
[2017-04-19] MEDS: oxyCODONE 20 mg ER Tab (oxyCONTIN) PO SCH ×2 (11:17→22:00)
[2017-04-19] MEDS ORDERED: Influenza Vaccine 60 mcg/0.5 mL SYR (4YR UP) IM ONE (12:00)
--- NOTE | 2017-04-19 14:27 | PCM.PSYCH ---
Initial Psychiatric Evaluation - Initial Psychiatric Evaluation Type of Admission: Voluntary Legal Status: Capacity Chief Complaint (in patient's own words): " I get panic attacks" History of Present Illness and Precipitating Events: The pt is sen, chart, reviewed, and case discussed. The pt is a 61, single female who is employed and has two children, admitted for bronchitis. We were consulted for anxiety. The patient reports having two panic attacks last week and one yesterday each lasting for 1-2 hours. The patient reports that her anxiety is currently a 10/10 and that she takes Xanax 2mg twice a day for it. She also says that she experiences knee, back, and shoulder pain. She uses Ambien to sleep. The patient sees Dr. Griffin as her psychiatrist on an outpatient basis and has a therapist. She had been in rehab 2-3 times in the past for alcohol (last time 6 years ago). She denies drug and alcohol use now. She was an alcohol user in the past but is sober now. She reports taking Xanax 2mg BID, Celexa 40mg, Ambien, Mirtazapine- but hand sign writer called her pharmacy and they confirmed only Xanax and ambien. Past Psych Hx: Depression, anxiety, self-cutting; last attempt was 6 months ago. Family Pysch Hx: Mother-Depression, Brother ()-substance abuse, Aunt-"a lot of issues" Current Medications: Active Medications Generic Name Dose Route Start Last Admin Trade Name Freq PRN Reason Stop Dose Admin Acetaminophen 650 mg 04/17/17 00:09 04/19/17 05:59 Tylenol 325mg Tab PO 650 mg Q4H PRN Administration pain fever Albuterol/Ipratropium 3 ml 04/17/17 02:00 04/19/17 13:23 Duoneb 3 Mg/0.5 Mg (3 Ml) Ud INH 3 ml RQ6 [facility] Administration Alprazolam 2 mg 04/19/17 18:00 Xanax PO BID [facility] Aspirin 81 mg 04/17/17 10:00 04/19/17 11:00 Ecotrin PO 81 mg DAILY [facility] Administration Enoxaparin Sodium 40 mg 04/17/17 10:00 04/19/17 11:00 Lovenox SC 40 mg DAILY [facility] Administration Famotidine 20 mg 04/17/17 10:00 04/19/17 11:00 Pepcid PO 20 mg DAILY [facility] Administration Gabapentin 100 mg 04/17/17 10:00 04/19/17 13:35 Neurontin PO 100 mg TID [facility] Administration Insulin Human Regular 0 unit 04/17/17 11:30 04/19/17 08:16 Novolin R SC Not Given ACHS [facility] Protocol Lisinopril 10 mg 04/17/17 10:00 04/19/17 11:00 Zestril PO 10 mg DAILY [facility] Administration Metformin HCl 1,000 mg 04/17/17 10:00 04/19/17 11:00 Glucophage Xr PO 1,000 mg DAILY [facility] Administration Methylprednisolone 40 mg 04/17/17 00:15 04/19/17 11:00 Solu-Medrol IVP 40 mg Q12 [facility] Administration Oxycodone HCl 20 mg 04/18/17 11:00 04/19/17 11:17 Oxycontin Extended Release Tab PO 20 mg Q12H [facility] Administration Sertraline HCl 25 mg 04/19/17 12:45 04/19/17 13:35 Zoloft PO 25 mg DAILY [facility] Administration Tramadol HCl 50 mg 04/17/17 10:00 04/19/17 09:17 Ultram PO Not Given TID [facility] Zolpidem Tartrate 5 mg 04/17/17 09:30 04/18/17 23:04 Ambien PO 5 mg HS PRN Administration Insomnia Past Psychiatric History - Past Psychiatric History Pertinent Medical Hx (Current Medical&Sleep Prob, Allergies): Allergies Allergy/AdvReac Type Severity Reaction Status Date / Time No Known Allergies Allergy Unverified 04/16/17 15:44 Alprazolam [Xanax] 2 mg PO [facility] 04/16/17 Gabapentin 04/16/17 traMADol [Ultram] 50 mg PO BID 04/16/17 Review of Systems - Neurological Neurological: Other Additional comments: Patient observed shaking as she took card out of wallet and reaching for tissues - Psychiatric Psychiatric: Abnormal Sleep Pattern, Anxiety, Panic Attacks. absent: Auditory Hallucinations, Confusion, Hallucinations, Homicidal Ideation, Suicidal Ideation Additional comments: unable to sleep without Ambien use Mental Status Examination - Personal Presentation Personal Presentation: Looks stated age - Affect Affect: Broad - Motor Activity Motor Activity: Calm - Reliability in Providing Information Reliability in Providing Information: Good - Speech Speech: Organized - Mood Mood: Anxious, Other Additional comments: tearful - Formal Thought Process Formal Thought Process: No Impairment - Obsessions/Compulsions Obsessions: None Compulsions: None - Cognitive Functions Orientation: Person, Place, Situation, Time Sensorium: Alert Attention/Concentration: Attentive Estimate of Intelligence: Average Judgement: Intact, as evidence by: Good judgement Memory: Recent intact, as evidence by: Ability to recall events of the day, Remote intact, as evidenced by: Abilit to recall sig. 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 She may be weaned off slowly. She is aware of its risks and her high dose Zoloft 25 mg PO daily for depression, panic d/o for now, dose will be increased slowly Individual therapy daily Psychoeducation and support daily Encourage compliance with meds and after care Refer to outpatient program Teach healthy lifestyle methods, i.e. diet, exercise, meditation 32 min Projected ELOS: 4-5 days Prognosis: good w/ treatment - Smoking Cessation Smoking Cessation Initiated: Yes
--- NOTE | 2017-04-19 16:57 | CP.PCM.PN ---
Subjective - Date & Time of Evaluation Date of Evaluation: 04/19/17 Time of Evaluation: 09:30 - Subjective Subjective: Patient was seen and examined at bedside. 61 y.o F continues to complain of productive cough and shortness of breath. She was complaining of feelings of anxiety yesterday, which have since resolved. Patient takes 2mg Xanax at home for anxiety. Patient also endorses worsening back pain, as well as decreased appetite. She denies nausea, vomiting, dizziness. Patient completed stress test with Dr. Lazaro. Objective - Vital Signs/Intake and Output Vital Signs (last 24 hours): Temp Pulse Resp BP Pulse Ox 98.2 F 80 20 153/84 H 99 04/19/17 15:00 04/19/17 16:15 04/19/17 15:00 04/19/17 15:00 04/19/17 15:00 Intake and Output: 04/19/17 04/19/17 06:59 18:59 Intake Total 2860 Balance 2860 - Medications Medications: Current Medications Acetaminophen (Tylenol 325mg Tab) 650 mg PO Q4H PRN PRN Reason: pain fever Last Admin: 04/19/17 05:59 Dose: 650 mg Albuterol/Ipratropium (Duoneb 3 Mg/0.5 Mg (3 Ml) Ud) 3 ml INH RQ6 [facility] Last Admin: 04/19/17 13:23 Dose: 3 ml Alprazolam (Xanax) 2 mg PO BID [facility] Aspirin (Ecotrin) 81 mg PO DAILY [facility] Last Admin: 04/19/17 11:00 Dose: 81 mg Enoxaparin Sodium (Lovenox) 40 mg SC DAILY [facility] Last Admin: 04/19/17 11:00 Dose: 40 mg Famotidine (Pepcid) 20 mg PO DAILY [facility] Last Admin: 04/19/17 11:00 Dose: 20 mg Gabapentin (Neurontin) 100 mg PO TID [facility] Last Admin: 04/19/17 13:35 Dose: 100 mg Insulin Human Regular (Novolin R) 0 unit SC ACHS [facility] PRN Reason: Protocol Last Admin: 04/19/17 14:25 Dose: Not Given Lisinopril (Zestril) 10 mg PO DAILY [facility] Last Admin: 04/19/17 11:00 Dose: 10 mg Metformin HCl (Glucophage Xr) 1,000 mg PO DAILY [facility] Last Admin: 04/19/17 11:00 Dose: 1,000 mg Methylprednisolone (Solu-Medrol) 40 mg IVP Q12 [facility] Last Admin: 04/19/17 11:00 Dose: 40 mg Oxycodone HCl (Oxycontin Extended Release Tab) 20 mg PO Q12H [facility] Last Admin: 04/19/17 11:17 Dose: 20 mg Sertraline HCl (Zoloft) 25 mg PO DAILY [facility] Last Admin: 04/19/17 13:35 Dose: 25 mg Tramadol HCl (Ultram) 50 mg PO TID [facility] Last Admin: 04/19/17 15:00 Dose: 50 mg Zolpidem Tartrate (Ambien) 5 mg PO HS PRN PRN Reason: Insomnia Last Admin: 04/18/17 23:04 Dose: 5 mg - Labs Labs: 04/19/17 06:47 04/19/17 06:47 PT 13.3 SECONDS (9.7-12.2) H 04/16/17 17:56 INR 1.2 04/16/17 17:56 APTT 29 SECONDS (21-34) 04/16/17 17:56 - Eye Exam Eye Exam: EOMI - ENT Exam ENT Exam: Mucous Membranes Moist - Neck Exam Neck Exam: Normal Inspection - Respiratory Exam Respiratory Exam: Clear to Ausculation Bilateral - Cardiovascular Exam Cardiovascular Exam: REGULAR RHYTHM - GI/Abdominal Exam GI & Abdominal Exam: Soft, Normal Bowel Sounds Assessment and Plan (1) Asthma exacerbation Assessment & Plan: Patient is a 61 y.o F with PMH of DM, hypophosphatemia, hypomagnesemia, hypertriglyceridemia, proteinuria, ketonuria, asthma, anxiety who presented with dyspnea and chest pain most likely due to asthma exacerbation. -CTA showed no PE or pneumonia -ECHO showed normal left ventricular systolic function and doppler, mild concentric left ventricular hypertrophy, EF 62% -Continue Duoneb treatment and Solumedrol -Outpatient PFTs. Status: Acute (2) Chest pain Status: Acute
--- NOTE | 2017-04-19 19:10 | PN ---
DATE: SUBJECTIVE: Patient is a 61-year-old female. Patient was seen and examined at the bedside, looking comfortable. Just came back from first part of the stress test. For the second, she has to go back. Last night she had episodes of anxiety. Xanax was given. Psychiatric consult called. Still coughing and having shortness of breath, but getting little bit better, complaining about back pain. No hematuria, hematochezia. No swelling of the legs. PHYSICAL EXAMINATION: VITAL SIGNS: Temperature 98.2, pulse 80, respiratory rate 20, blood pressure 153/84, pulse oximetry 99. HEENT: Head is normocephalic and atraumatic. Eyes, PERRLA. Extraocular muscles are intact. Conjunctivae are clear. Nose is patent. Mucous membranes are moist. NECK: Supple. No carotid bruits, JVD, or thyromegaly. CHEST: Bilaterally symmetrical. HEART: S1 and S2 positive. LUNGS: Clear to auscultation. ABDOMEN: Soft. Bowel sounds are present. No organomegaly. EXTREMITIES: No edema. No cyanosis. NEUROLOGIC: The patient is awake and alert. Moving all four extremities. No focal deficits. MEDICATIONS: Tylenol, albuterol, Xanax, Ecotrin, Lovenox, Pepcid, Neurontin, NovoLog, Zestril, Glucophage, Solu-Medrol, OxyContin, Zoloft, tramadol, Ambien. LABORATORY DATA: Sodium 137, potassium 4.5, BUN 11, creatinine 0.7, and glucose 126. ASSESSMENT AND PLAN: Ms. Jeane Ramires is a 61-year-old lady with hyperglycemia, asthma exacerbation, history of diabetes mellitus, hypothyroidism, hypomagnesemia, hypertriglyceridemia, proteinuria, ketonuria, asthma, anxiety, came with dysuria and chest pain, most likely due to asthma exacerbation, but patient went for stress test today. Half part was done in the morning, other we are waiting. CAT scan showed no pulmonary embolism or pneumonia. Echocardiogram shows normal left ventricular systolic function and Doppler mild concentric left ventricular hypertrophy. Ejection fraction is 62%. Continue DuoNeb treatment. Tapering dose of Solu-Medrol. Seen by psychiatrist, Dr. Gregorio Scott; recreation supervisor, Dr. Derick Lazaro. Looks like patient has chronic fatigue syndrome. Patient has history of anemia, insomnia, anxiety. Troponin and EKG were unremarkable. Patient was seen by the gear technician, Dr. Jairo Jackson. Gastrointestinal and deep venous thrombosis prophylaxis. Repeat labs. We will follow up. Mignon Bernabe MD
--- NOTE | 2017-04-19 22:05 | CARD ---
APPROVED REPORT Protocol: LEXISCAN Test Type: LEXISCAN STRESS Test Indications: CP Target HR: 158 bpm Resting ECG: NSR Resting Heart Rate: 62 bpm Resting Blood Pressure: 132/80mmHg submaximum (85%): 134 bpm TEST SUMMARY [id number]:01..1.070/.0. PREINFSNHYPERV.04:230.00.01.225125/80.0. INFUSIONDOSE 100:300.00.01.673366/80.0. [id number]:[id number]/80.0. PROCEDURE Pharmacologic stress testing was performed using 0.4mg per 5ml of regadenoson given intravenously over 7-10 seconds. Reversal agent aminophyline 100 mg, given intravenously for Headache. POST EXERCISE Reason for Termination: Protocol Completed Target HR: No Max HR: 64 bpm 56% of Maximum Predicted HR: 158 bpm Exercise duration: 00:30 min:sec, 0 Stage Exercise capacity: 1.0METs Max Blood Pressure: 132/80mmHg Blood Pressure response to exercise: normal resting BP - appropriate response Heart Rate response to exercise: appropriate Chest Pain: No, none Angina index: 0 Arrhythmia: Yes, atrial premature beats ST Change: No, none Deviation: 0 mm INTERPRETATION Stress EKG Conclusion: NEGATIVE LEXISCAN STRESS TEST NORMAL BP RESPONSE TO LEXISCAN NUCLEAR STUDIES TO BE READ SEPARATELY EXAM: Myocardial Perfusion STRESS/REST Imaging Protocol The imaging protocol used to acquire images was Stress Tc-99m/rest Tc-99m 1 day Rest Spect myocardial perfusion imaging was performed in supine position 45 minutes following the injection of 26.3 mCi of Tc-99 Myoview. Gated Stress Spect was performed 45 minutes after intravenous 11.8 mCi Tc-99 Myoview injection. The images were gated to evaluate regional wall motion and calculate ventricular ejection fraction.Images were reconstructed using backfilter projection method in short horizontal and verticle long axis. Spect slices were generated. RESTING DATA EDV89.22qhWF6.20L/min ESV35.00mlMyocardial Jwut308.00g Av. Heart Rate60.00bpm EF61.00% STRESS DATA EDV74.90lxOG9.30L/min ESV20.00mlMyocardial Vfiq098.00g EF73.00% Regional WT score at stress:0.00 Regional WM score at stress:0.00 Summed WT score at stress:2.00 Av. Heart Rate79.00bpmSummed WM score at stress:2.00 LV Perf. Quant 17 Seg. SSS0.00 17 Seg. SRS0.00 17 Seg. SDS0.00 Stress Defect Extent (% LAD)0.00Rest Defect Extent (% LAD)0.00Rev. Defect Extent (% LAD)0.00 Stress Defect Extent (% LCX)0.00Rest Defect Extent (% LCX)0.00Rev. Defect Extent (% LCX)0.00 Stress Defect Extent (% RCA)0.00Rest Defect Extent (% RCA)0.00Rev. Defect Extent (% RCA)0.00 Stress Defect Extent (% JUAN A)0.00Rest Defect Extent (% JUAN A)0.00Rev. Defect Extent (% JUAN A)0.00 IMPRESSION Normal Myocardial Perfusion exercise stress study Left Ventricle LV Size/Shape: The left ventricle is normal size. LV Thickness: There is normal left ventricular wall thickness. LV Function:Left ventricle systolic function is normal. The Ejection Fraction is 60-65%. Regional Wall Motion:There is normal left ventricular wall motion. Metabolism/Perfusion Defects: There is no scan evidence of reversible ischemia noted. Conclusion 1. There is no scan evidence of reversible ischemia noted. 2. Left ventricle systolic function is normal. 3. The Ejection Fraction is 60-65%.
[2017-04-20] MEDS: Albuterol-Ipratrop 3 mg / 0.5 (3 ml) UD INH SCH ×4 (01:37→19:27)
[2017-04-20] MEDS: (Novolin R) Insulin Human Regular 100 units/ml vial SC SCH ×4 (08:30→22:34)
[2017-04-20] MEDS: MethylPREDNISolone 40 mg Vial IVP SCH ×2 (10:20→22:32)
[2017-04-20] MEDS: Enoxaparin 40 mg Syringe SC SCH (10:23)
[2017-04-20] MEDS: oxyCODONE 20 mg ER Tab (oxyCONTIN) PO SCH ×2 (12:00→22:33)
--- NOTE | 2017-04-20 15:46 | PCM.PYCHPN ---
Psychiatric Progress Note - Psychiatric Progress Note Patient seen today, length of contact: 15 min Patient Chief Complaint: " bad thoughts" Problems Identified/Issues Discussed: Pt seen an examined at bedside. Pt reports that she is doing a little better but is still having bad thoughts, primarily concerning self hate. The patient is still anxious, but is grateful for the help she is receiving. She believes that is currently in the right pace, receiving the right care. The pt is seen, chart reviewed, case discussed with staff. The pt is compliant with medications and reports no side-effects. Symptoms are improving but needs more time to stabilize. After care discussed, support and psychoeducation given. Medication Change: Yes Medical Record Reviewed: Yes Mental Status Examination - Cognitive Function Orientation: Person, Place, Situation, Time Memory: Intact Attention: WNL Concentration: WNL Association: WNL Fund of Knowledge: WNL - Mood Mood: Anxious, Other - Affect Affect: Broad - Speech Speech: Appropriate - Formal Thought Process Formal Thought Process: No Impairment - Suicidal Ideation Suicidal Ideation: No - Homicidal Ideation Homicidal Ideation: No Goal/Treatment Plan - Goal/Treatment Plan Need for Continued Stay: Other (medical) Progress Toward Problem(s) and Goals/Treatment Plan: Resumed Xanax 2mg PO BID for now to avoid withdrawals and wdw seizures. She may be weaned off slowly. She is aware of its risks and her high dose Zoloft 25 mg PO daily for depression, panic d/o for now, dose will be increased slowly Individual therapy daily Psychoeducation and support daily Encourage compliance with meds and after care Refer to outpatient program Teach healthy lifestyle methods, i.e. diet, exercise, meditation
--- NOTE | 2017-04-20 18:36 | CP.PCM.PN ---
Subjective - Date & Time of Evaluation Date of Evaluation: 04/20/17 Time of Evaluation: 16:30 - Subjective Subjective: Patient was seen and examined at bedside. Patient slept well through the night, however complains of fatigue and is unable to walk to the bathroom without feeling exhausted. She states that the Duoneb provides temporary relief. Patient reports feelings of depression as well as diffuse muscle aches. Patient was seen by psychiatry and started on Zoloft and is continuing Xanax BID. Patient continues to complain of decreased appetite. She denies nausea, vomiting , dizziness. Objective - Vital Signs/Intake and Output Vital Signs (last 24 hours): Temp Pulse Resp BP Pulse Ox 98.8 F 78 20 169/85 H 98 04/20/17 15:45 04/20/17 15:45 04/20/17 15:45 04/20/17 10:15 04/20/17 15:45 Intake and Output: 04/20/17 04/20/17 06:59 18:59 Intake Total 0 500 Balance 0 500 - Medications Medications: Current Medications Acetaminophen (Tylenol 325mg Tab) 650 mg PO Q4H PRN PRN Reason: pain fever Last Admin: 04/19/17 05:59 Dose: 650 mg Albuterol/Ipratropium (Duoneb 3 Mg/0.5 Mg (3 Ml) Ud) 3 ml INH RQ6 [facility] Last Admin: 04/20/17 07:40 Dose: 3 ml Alprazolam (Xanax) 2 mg PO BID [facility] Last Admin: 04/20/17 17:49 Dose: 2 mg Aspirin (Ecotrin) 81 mg PO DAILY [facility] Last Admin: 04/20/17 10:20 Dose: 81 mg Enoxaparin Sodium (Lovenox) 40 mg SC DAILY [facility] Last Admin: 04/20/17 10:23 Dose: 40 mg Famotidine (Pepcid) 20 mg PO DAILY [facility] Last Admin: 04/20/17 10:20 Dose: 20 mg Gabapentin (Neurontin) 100 mg PO TID [facility] Last Admin: 04/20/17 17:49 Dose: 100 mg Insulin Human Regular (Novolin R) 0 unit SC ACHS [facility] PRN Reason: Protocol Last Admin: 04/20/17 17:10 Dose: 2 unit Lisinopril (Zestril) 10 mg PO DAILY [facility] Last Admin: 04/20/17 10:20 Dose: 10 mg Metformin HCl (Glucophage Xr) 1,000 mg PO DAILY [facility] Last Admin: 04/20/17 10:19 Dose: 1,000 mg Methylprednisolone (Solu-Medrol) 40 mg IVP Q12 [facility] Last Admin: 04/20/17 10:20 Dose: 40 mg Oxycodone HCl (Oxycontin Extended Release Tab) 20 mg PO Q12H [facility] Last Admin: 04/20/17 12:00 Dose: 20 mg Sertraline HCl (Zoloft) 50 mg PO DAILY [facility] Tramadol HCl (Ultram) 50 mg PO TID [facility] Last Admin: 04/20/17 17:55 Dose: 50 mg Zolpidem Tartrate (Ambien) 5 mg PO HS PRN PRN Reason: Insomnia Last Admin: 04/19/17 22:04 Dose: 5 mg - Labs Labs: 04/19/17 06:47 04/19/17 06:47 PT 13.3 SECONDS (9.7-12.2) H 04/16/17 17:56 INR 1.2 04/16/17 17:56 APTT 29 SECONDS (21-34) 04/16/17 17:56 - Head Exam Head Exam: ATRAUMATIC, NORMOCEPHALIC - Eye Exam Eye Exam: Normal appearance - ENT Exam ENT Exam: Mucous Membranes Moist - Neck Exam Neck Exam: Normal Inspection - Respiratory Exam Respiratory Exam: Clear to Ausculation Bilateral - Cardiovascular Exam Cardiovascular Exam: REGULAR RHYTHM - GI/Abdominal Exam GI & Abdominal Exam: Soft, Normal Bowel Sounds Assessment and Plan (1) Asthma exacerbation Assessment & Plan: Assessment and Plan: Patient is a 61 y.o F with PMH of DM, hypophosphatemia, hypomagnesemia, hypertriglyceridemia, proteinuria, ketonuria, asthma, anxiety who presented with dyspnea and chest pain most likely due to asthma exacerbation , psychogenic cause, or chronic fatigue syndrome. SOB: -CTA showed no PE or no focal pneumonia -Stress Test- No scan evidence of reversible ischemia notes, left ventricle systolic function normal, EF 60-65% -ECHO showed normal left ventricular systolic function and doppler, mild concentric left ventricular hypertrophy, EF 62% -Continue Duoneb treatment and Solumedrol -Outpatient PFTs Status: Acute (2) Chest pain Status: Acute
[2017-04-20] MEDS: Moxifloxacin IV 400mg/250ml NS 400 MG/250 ML BAG IVPB SCH (19:55)
--- NOTE | 2017-04-21 00:16 | CP.PCM.PN ---
Subjective - Date & Time of Evaluation Date of Evaluation: 04/19/17 Time of Evaluation: 15:10 - Subjective Subjective: Patient seen and evaluated Normal stress test and normal EF Medical management Objective - Vital Signs/Intake and Output Vital Signs (last 24 hours): Temp Pulse Resp BP Pulse Ox 98.8 F 84 20 150/68 98 04/20/17 15:45 04/20/17 22:56 04/20/17 15:45 04/20/17 15:50 04/20/17 15:45 Intake and Output: 04/20/17 04/21/17 18:59 06:59 Intake Total 500 600 Balance 500 600 - Medications Medications: Current Medications Acetaminophen (Tylenol 325mg Tab) 650 mg PO Q4H PRN PRN Reason: pain fever Last Admin: 04/19/17 05:59 Dose: 650 mg Albuterol/Ipratropium (Duoneb 3 Mg/0.5 Mg (3 Ml) Ud) 3 ml INH RQ6 [facility] Last Admin: 04/20/17 19:27 Dose: 3 ml Alprazolam (Xanax) 2 mg PO BID [facility] Last Admin: 04/20/17 17:49 Dose: 2 mg Aspirin (Ecotrin) 81 mg PO DAILY [facility] Last Admin: 04/20/17 10:20 Dose: 81 mg Enoxaparin Sodium (Lovenox) 40 mg SC DAILY [facility] Last Admin: 04/20/17 10:23 Dose: 40 mg Famotidine (Pepcid) 20 mg PO DAILY [facility] Last Admin: 04/20/17 10:20 Dose: 20 mg Gabapentin (Neurontin) 300 mg PO TID [facility] Moxifloxacin HCl (Avelox Iv 400mg/250ml Ns) 400 mg in 250 mls @ 167 mls/hr IVPB Q24H [facility] Last Admin: 04/20/17 19:55 Dose: 167 mls/hr Insulin Human Regular (Novolin R) 0 unit SC ACHS [facility] PRN Reason: Protocol Last Admin: 04/20/17 22:34 Dose: Not Given Lisinopril (Zestril) 10 mg PO DAILY [facility] Last Admin: 04/20/17 10:20 Dose: 10 mg Methylprednisolone (Solu-Medrol) 30 mg IVP Q12 [facility] Oxycodone HCl (Oxycontin Extended Release Tab) 20 mg PO Q12H [facility] Last Admin: 04/20/17 22:33 Dose: 20 mg Sertraline HCl (Zoloft) 50 mg PO DAILY [facility] Tramadol HCl (Ultram) 50 mg PO TID [facility] Last Admin: 04/20/17 17:55 Dose: 50 mg Zolpidem Tartrate (Ambien) 5 mg PO HS PRN PRN Reason: Insomnia Last Admin: 04/20/17 22:38 Dose: 5 mg - Labs Labs: 04/19/17 06:47 04/19/17 06:47 PT 13.3 SECONDS (9.7-12.2) H 04/16/17 17:56 INR 1.2 04/16/17 17:56 APTT 29 SECONDS (21-34) 04/16/17 17:56
[2017-04-21] MEDS: Albuterol-Ipratrop 3 mg / 0.5 (3 ml) UD INH SCH ×4 (01:45→19:55)
--- NOTE | 2017-04-21 02:28 | PN ---
DATE: SUBJECTIVE: The patient is a 61-year-old female. The patient is seen and examined at the bedside, looks a little bit comfortable, but still complaining about body aches, sleep problem and depressed, seen by the psychiatrist. We will start physical therapy. Cough is better, shortness of breath is better. No fever, no chills. No hematuria, no hematochezia. PHYSICAL EXAMINATION: VITAL SIGNS: Temperature 98.8, pulse 78, respiratory rate 20, blood pressure 160/85, pulse oximetry 98. HEENT: Head: Normocephalic, atraumatic. Eyes: PERRLA. Extraocular muscles intact. Conjunctivae clear. Nose patent. NECK: Supple. No carotid bruits or thyromegaly. CHEST: Bilaterally symmetrical. HEART: S1 and S2 positive. LUNGS: Clear to auscultation. ABDOMEN: Soft. Bowel sound present. No organomegaly. EXTREMITIES: No edema, no cyanosis. NEUROLOGIC: The patient is awake, alert. Moving all 4 extremities. No focal deficits. MEDICATIONS: Tylenol, DuoNeb, Xanax, Ecotrin, Lovenox, Pepcid, Neurontin, NovoLog, Zestril, Glucophage, Solu-medrol, OxyContin, Zoloft, Tramadol, Ambien. LABORATORY DATA: White blood cells 8.4, hemoglobin 10.9, hematocrit 32.5, platelets 292. Sodium 137, potassium 4.5, BUN 11, creatinine 0.7, glucose 127. ASSESSMENT AND PLAN: Ms. Jeane Ramires is a 61-year-old lady with hyperglycemia, was admitted for asthma exacerbation, history of hypophosphatemia, hypomagnesemia, hypertriglyceridemia, proteinuria, ketonuria, asthma, anxiety, came with dyspnea and chest pain most likely due to asthma exacerbation, psychogenic cause or chronic fatigue syndrome. Shortness of breath is better. CAT scan showed no pulmonary embolism, no focal pneumonia. Stress test, no scan evidence of reversible ischemia noted. Left ventricular systolic function, normal. Ejection fraction 60% to 65%. Echo showed normal left ventricular systolic function. Doppler, mild concentrated left ventricular hypertrophy, ejection fraction 62%. We will continue DuoNeb, tapering dose of Solu-Medrol. Chest pain is better. We will start physical therapy. The patient is seen by the psychiatrist, started Zoloft and continue Xanax. If patient is deconditioned, then need physical therapy. We will follow up. Mignon Bernabe MD
[2017-04-21] MEDS: (Novolin R) Insulin Human Regular 100 units/ml vial SC SCH ×4 (08:13→21:57)
[2017-04-21] MEDS: MethylPREDNISolone 40 mg Vial IVP SCH ×2 (09:54→23:10)
[2017-04-21] MEDS: Enoxaparin 40 mg Syringe SC SCH (09:54)
[2017-04-21] MEDS: oxyCODONE 20 mg ER Tab (oxyCONTIN) PO SCH ×2 (11:06→23:11)
--- NOTE | 2017-04-21 14:55 | CP.PCM.PN ---
Subjective - Date & Time of Evaluation Date of Evaluation: 04/21/17 Time of Evaluation: 13:00 - Subjective Subjective: Patient was seen and examined at bedside. Patient complains of fatigue and exhaustion. Patient also complains of productive cough, and was given Avelox yesterday. She states that the Duoneb provides mild relief. Patient reports feelings of anxiety and depression as well as diffuse muscle aches in bilateral knees, lower back, and substernal region. She denies nausea, vomiting, dizziness. Assessment and Plan: Patient is a 61 y.o F with PMH of DM, hypophosphatemia, hypomagnesemia, hypertriglyceridemia, proteinuria, ketonuria, asthma, anxiety who presented with dyspnea and chest pain most likely due to asthma exacerbation , psychogenic cause, or chronic fatigue syndrome. SOB: -Moxifloxacin started on 04/20 -CTA showed no PE or no focal pneumonia -Stress Test- No scan evidence of reversible ischemia notes, left ventricle systolic function normal, EF 60-65% -ECHO showed normal left ventricular systolic function and doppler, mild concentric left ventricular hypertrophy, EF 62% -Continue Duoneb treatment and Solumedrol -Outpatient PFTs Objective - Vital Signs/Intake and Output Vital Signs (last 24 hours): Temp Pulse Resp BP Pulse Ox 99.1 F 64 20 144/82 100 04/21/17 08:00 04/21/17 13:24 04/21/17 08:00 04/21/17 13:24 04/21/17 12:03 Intake and Output: 04/21/17 04/21/17 06:59 18:59 Intake Total 750 280 Balance 750 280 - Medications Medications: Current Medications Acetaminophen (Tylenol 325mg Tab) 650 mg PO Q4H PRN PRN Reason: pain fever Last Admin: 04/19/17 05:59 Dose: 650 mg Albuterol/Ipratropium (Duoneb 3 Mg/0.5 Mg (3 Ml) Ud) 3 ml INH RQ6 [facility] Last Admin: 04/21/17 13:39 Dose: 3 ml Alprazolam (Xanax) 2 mg PO BID [facility] Last Admin: 04/21/17 09:53 Dose: 2 mg Aspirin (Ecotrin) 81 mg PO DAILY [facility] Last Admin: 04/21/17 09:53 Dose: 81 mg Enoxaparin Sodium (Lovenox) 40 mg SC DAILY [facility] Last Admin: 04/21/17 09:54 Dose: 40 mg Famotidine (Pepcid) 20 mg PO DAILY [facility] Last Admin: 04/21/17 09:54 Dose: 20 mg Gabapentin (Neurontin) 300 mg PO TID [facility] Last Admin: 04/21/17 09:53 Dose: 300 mg Moxifloxacin HCl (Avelox Iv 400mg/250ml Ns) 400 mg in 250 mls @ 167 mls/hr IVPB Q24H [facility] Last Admin: 04/20/17 19:55 Dose: 167 mls/hr Insulin Human Regular (Novolin R) 0 unit SC ACHS [facility] PRN Reason: Protocol Last Admin: 04/21/17 12:25 Dose: Not Given Lisinopril (Zestril) 10 mg PO DAILY [facility] Last Admin: 04/21/17 09:53 Dose: 10 mg Methylprednisolone (Solu-Medrol) 30 mg IVP Q12 [facility] Last Admin: 04/21/17 09:54 Dose: 30 mg Metoprolol Tartrate (Lopressor) 25 mg PO BID [facility] Oxycodone HCl (Oxycontin Extended Release Tab) 20 mg PO Q12H [facility] Last Admin: 04/21/17 11:06 Dose: 20 mg Sertraline HCl (Zoloft) 50 mg PO DAILY [facility] Last Admin: 04/21/17 10:02 Dose: 50 mg Tramadol HCl (Ultram) 50 mg PO TID [facility] Last Admin: 04/21/17 13:25 Dose: 50 mg Zolpidem Tartrate (Ambien) 5 mg PO HS PRN PRN Reason: Insomnia Last Admin: 04/20/17 22:38 Dose: 5 mg - Labs Labs: 04/19/17 06:47 04/19/17 06:47 PT 13.3 SECONDS (9.7-12.2) H 04/16/17 17:56 INR 1.2 04/16/17 17:56 APTT 29 SECONDS (21-34) 04/16/17 17:56 Assessment and Plan (1) Asthma exacerbation Status: Acute (2) Chest pain Status: Acute
--- NOTE | 2017-04-21 15:56 | CARD ---
APPROVED REPORT EKG Measurement Heart [id number] ND 160P41 [id number] <Conclusion> Normal sinus rhythm Minimal voltage criteria for LVH, may be normal variant Possible Septal infarct, age undetermined Abnormal ECG
[2017-04-21] MEDS: Moxifloxacin IV 400mg/250ml NS 400 MG/250 ML BAG IVPB SCH (19:17)
[2017-04-22] MEDS: Albuterol-Ipratrop 3 mg / 0.5 (3 ml) UD INH SCH ×4 (01:11→20:33)
--- NOTE | 2017-04-22 03:05 | PN ---
DATE: SUBJECTIVE: Patient is seen and examined at the bedside. Looking comfortable. No nausea, vomiting or diarrhea. Feeling fatigued, tired, exhausted. Having cough. No hematuria, hematochezia. No fever, no chills. OBJECTIVE: VITAL SIGNS: Temperature 99.1, pulse 64, respiratory rate 20, blood pressure is 144/82, pulse oximetry 100%. HEENT: Head normocephalic and atraumatic. Eyes, PERRLA. Extraocular muscles are intact. Conjunctivae clear. Nose patent. Mucous membranes moist. NECK: Supple. No carotid bruits. No JVD or thyromegaly. CHEST: Bilaterally symmetrical. HEART: S1 and S2 positive. LUNGS: Clear to auscultation. ABDOMEN: Soft. Bowel sounds positive. No organomegaly. EXTREMITIES: No edema. No cyanosis. NEUROLOGICAL: Patient awake and alert. Moving all four extremities. No focal deficits. MEDICATIONS: Acetaminophen, DuoNeb, Xanax, Ecotrin, Pepcid, Neurontin, Avelox, Zestril, Solu-medrol, Lopressor, OxyContin, Tramadol, Ambien. LABORATORY DATA: White blood cells 8.4, hemoglobin 10.9, hematocrit 32.5, platelets 292. Sodium 137, potassium 4.5, BUN 11, creatinine 0.7, glucose 126. ASSESSMENT AND PLAN: Ms. Jeane Ramires is a 61-year-old lady with anemia, leukocytosis, asthma exacerbation, chest pain, always feeling fatigued and tired, anxiety, started on Avelox, history of diabetes mellitus, hypophosphatemia, hypomagnesemia, hypertriglyceridemia, proteinuria, ketonuria, came with dyspnea and chest pain - most likely due to asthma exacerbation, psychogenic cause or chronic fatigue syndrome. Moxifloxacin given. CAT scan showed no pulmonary embolism, no focal pneumonia. Stress test, no scan evidence of reversible ischemia noted, left ventricular systolic function normal. Echo was done. Continue DuoNeb treatment and Solu-Medrol. Outpatient PFTs. Dr. Jackson's notes reviewed. Patient needs physical therapy. Gastrointestinal and deep venous thrombosis prophylaxes. Repeat labs. Mignon Bernabe MD
[2017-04-22] MEDS: (Novolin R) Insulin Human Regular 100 units/ml vial SC SCH ×4 (08:16→21:36)
[2017-04-22] MEDS: MethylPREDNISolone 40 mg Vial IVP SCH ×2 (10:29→22:19)
[2017-04-22] MEDS: Enoxaparin 40 mg Syringe SC SCH (10:30)
[2017-04-22] MEDS: oxyCODONE 20 mg ER Tab (oxyCONTIN) PO SCH ×2 (11:20→22:18)
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
[2017-04-22] MEDS: Moxifloxacin IV 400mg/250ml NS 400 MG/250 ML BAG IVPB SCH (18:46)
[2017-04-22] MEDS ORDERED: MethylPREDNISolone 40 mg Vial IVP SCH (23:39)
[2017-04-23] MEDS: Albuterol-Ipratrop 3 mg / 0.5 (3 ml) UD INH SCH ×3 (01:26→14:10)
--- NOTE | 2017-04-23 05:09 | PN ---
DATE: 04/22/2017 SUBJECTIVE: The patient was seen and examined on the bedside, looking anxious, even was seen by house physician and psychiatrist, crying more often. I offered her transfer to Psych Department but she refused. Psychiatrist want to do workup as outpatient. Then, plan was to send the patient to rehab but due to anxiety, her blood pressure is going up, we hold her discharge, we will do the evaluation tomorrow. No fever. No chills. No nausea. No vomiting. No diarrhea. No hematuria. No hematochezia. No swelling of the leg. No headache. No dizziness. No chest pain. No palpitation. PHYSICAL EXAMINATION: VITAL SIGNS: Temperature 98.6, pulse 70, blood pressure 178/81, and respiratory rate 20. HEENT: Head, normocephalic and atraumatic. Eyes: PERRLA, extraocular movements intact. Conjunctivae clear. Nose patent. Mucous membranes moist. NECK: Supple. No carotid bruits, JVD, or thyromegaly. CHEST: Bilaterally symmetrical. HEART: S1 and S2 positive. LUNGS: Clear to auscultation. ABDOMEN: Soft. Bowel sounds positive. No organomegaly. EXTREMITIES: No edema, no cyanosis. NEUROLOGIC: The patient is awake, alert, moving all four extremities. No focal deficit. MEDICATIONS: Abilify, Ambien, Avelox, DuoNeb, Ecotrin, Lopressor, Lovenox, Neurontin, OxyContin, Pepcid, Solu-Medrol, Tylenol, Xopenex, Zestril, Zoloft. LABS: We do not have recent labs today, but I reviewed old labs. ASSESSMENT AND PLAN: Mr. Jeane Ramires is a 61-year-old lady with uncontrolled diabetes mellitus, anemia, proteinuria, ketonuria, has anxiety attacks, seen by Dr. Gregorio Scott, he suggested outpatient treatment and classes. I offered the patient transfer to the psych unit, but the patient refused. She came into the [facility] with chest pain, stress test was done and within normal limits, getting Avelox, history of abnormal electrolytes , hypertriglyceridemia, history of asthma exacerbation and getting tapering dose of steroids, psychogenic cause or chronic fatigue syndrome, hypertension, gastrointestinal and deep venous thrombosis prophylaxis, repeat labs. We will follow. Mignon Bernabe MD [facility]
[2017-04-23 07:41] LABS: HEMOGLOBIN 11.9 g/dL (11.0-16.0); MEAN CELL VOLUME 83.9 fL (81.0-99.0); MEAN CORPUSCULAR HEMOGLOBIN 28.4 pg (27.0-31.0); MEAN CORPUSCULAR HGB CONC 33.9 g/dL (33.0-37.0); MEAN PLATELET VOLUME 8.5 fL (7.2-11.7); RBC 4.18 Mil/uL (3.80-5.20); RED CELL DISTRIBUTION WIDTH 13.9 % (11.5-14.5); WHITE BLOOD COUNT 12.4 K/uL (4.8-10.8)
[2017-04-23] MEDS: (Novolin R) Insulin Human Regular 100 units/ml vial SC SCH ×2 (07:54→12:48)
[2017-04-23 08:05] LABS: BLOOD UREA NITROGEN 17 mg/dL (7-17); CALCIUM 9.4 mg/dl (8.6-10.4); GFR AFRICAN-AMERICAN > 60; GFR NON-AFRICAN AMERICAN > 60
[2017-04-23 08:34] VITALS: RESP 18
[2017-04-23] MEDS: Enoxaparin 40 mg Syringe SC SCH (11:00)
[2017-04-23] MEDS: oxyCODONE 20 mg ER Tab (oxyCONTIN) PO SCH (11:00)
--- NOTE | 2017-04-23 11:19 | PCM.PYCHPN ---
Psychiatric Progress Note - Psychiatric Progress Note Patient seen today, length of contact: 15 min Patient Chief Complaint: "I am much better today" Problems Identified/Issues Discussed: The pt is seen, chart reviewed, case discussed with staff. The pt is compliant with medications and reports no side-effects. The pt reports that she is doing much better. She says that she knows that anger is still somewhere inside of her and that she needs to take the time to heal. Patient reports no new symptomes and has improved. Aftercare discussed, support and psychoeducation given. Medication Change: Yes Medical Record Reviewed: Yes Mental Status Examination - Cognitive Function Orientation: Person, Place, Situation, Time Memory: Intact Attention: WNL Concentration: WNL Association: WNL Fund of Knowledge: WNL - Mood Mood: Neutral - Affect Affect: Broad - Speech Speech: Appropriate - Formal Thought Process Formal Thought Process: No Impairment - Suicidal Ideation Suicidal Ideation: No - Homicidal Ideation Homicidal Ideation: No Goal/Treatment Plan - Goal/Treatment Plan Need for Continued Stay: Remain at risks for inpatient hospitalization, Other ( medical) Progress Toward Problem(s) and Goals/Treatment Plan: Resumed Xanax 2mg PO BID for now to avoid withdrawals and wdw seizures. She may be weaned off slowly. She is aware of its risks and her high dose Zoloft 50 mg PO daily for depression, panic d/o for now, dose will be increased slowly Add Abilify 5 for irritability, anger Individual therapy daily Psychoeducation and support daily Encourage compliance with meds and after care Refer to outpatient program Teach healthy lifestyle methods, i.e. diet, exercise, meditation Cleared for d/c Continue same psych meds See psychiatrist next week
--- NOTE | 2017-04-23 13:04 | CP.PCM.PN ---
Subjective - Date & Time of Evaluation Date of Evaluation: 04/23/17 Time of Evaluation: 07:00 - Subjective Subjective: patient seen and eamined Cough and breathing much improved Afebrile No chest pain Seen by psychiatry Being treated for anxiety/depression Discharge on p.o. prednisone rescue inhaler Inhaled steroids Follow up in the office for pulmonary function test Objective - Vital Signs/Intake and Output Vital Signs (last 24 hours): Temp Pulse Resp BP Pulse Ox 98.3 F 84 18 160/80 H 100 04/23/17 07:10 04/23/17 10:59 04/23/17 07:10 04/23/17 10:59 04/23/17 07:10 - Medications Medications: Current Medications Acetaminophen (Tylenol 325mg Tab) 650 mg PO Q4H PRN PRN Reason: pain fever Last Admin: 04/22/17 06:01 Dose: 650 mg Albuterol/Ipratropium (Duoneb 3 Mg/0.5 Mg (3 Ml) Ud) 3 ml INH RQ6 [facility] Last Admin: 04/23/17 01:26 Dose: 3 ml Alprazolam (Xanax) 2 mg PO BID [facility] Last Admin: 04/23/17 11:00 Dose: 2 mg Aripiprazole (Abilify) 5 mg PO QPM [facility] Last Admin: 04/22/17 18:45 Dose: 5 mg Aspirin (Ecotrin) 81 mg PO DAILY [facility] Last Admin: 04/23/17 11:00 Dose: 81 mg Enoxaparin Sodium (Lovenox) 40 mg SC DAILY [facility] Last Admin: 04/23/17 11:00 Dose: 40 mg Famotidine (Pepcid) 20 mg PO DAILY [facility] Last Admin: 04/23/17 11:00 Dose: 20 mg Gabapentin (Neurontin) 300 mg PO TID [facility] Last Admin: 04/23/17 11:00 Dose: 300 mg Moxifloxacin HCl (Avelox Iv 400mg/250ml Ns) 400 mg in 250 mls @ 167 mls/hr IVPB Q24H [facility] Last Admin: 04/22/17 18:46 Dose: 167 mls/hr Insulin Human Regular (Novolin R) 0 unit SC ACHS HAL PRN Reason: Protocol Last Admin: 04/23/17 12:48 Dose: Not Given Lisinopril (Zestril) 40 mg PO DAILY [facility] Last Admin: 04/23/17 11:00 Dose: 40 mg Methylprednisolone (Solu-Medrol) 20 mg IVP Q12 [facility] Last Admin: 04/23/17 11:00 Dose: 20 mg Metoprolol Tartrate (Lopressor) 50 mg PO BID [facility] Last Admin: 04/23/17 11:00 Dose: 50 mg Oxycodone HCl (Oxycontin Extended Release Tab) 20 mg PO Q12H [facility] Last Admin: 04/23/17 11:00 Dose: 20 mg Sertraline HCl (Zoloft) 50 mg PO DAILY [facility] Last Admin: 04/23/17 11:00 Dose: 50 mg Zolpidem Tartrate (Ambien) 5 mg PO HS PRN PRN Reason: Insomnia Last Admin: 04/22/17 22:19 Dose: 5 mg - Labs Labs: 04/23/17 07:36 04/23/17 07:36 PT 13.3 SECONDS (9.7-12.2) H 04/16/17 17:56 INR 1.2 04/16/17 17:56 APTT 29 SECONDS (21-34) 04/16/17 17:56 Assessment and Plan (1) Asthma exacerbation Status: Acute (2) Chest pain Status: Acute
[2017-04-23 15:01] VITALS: PULSE 61; TEMP 99.4; O2SAT 98
[2017-04-23 16:49] VITALS: BP 147/84
== END 2017-04-23 17:14 | disposition home or self-care (01) | DRG 202 ==
LOC: C.ER 14:55 → C.9E 21:15 → C.9I 04-17 05:55 → OBSVTOIN 04-17 12:25 → C.6T 04-17 20:47 → C.9I 04-17 21:13 → C.6T 04-17 22:21
PROVIDERS: ADMIT Internal Medicine; ATTEND Internal Medicine
DX: J45.901 Unspecified asthma with (acute) exacerbation (principal); F33.1 Major depressive disorder, recurrent, moderate; E87.8 Other disorders of electrolyte and fluid balance, not elsewhere classified; I11.9 Hypertensive heart disease without heart failure; E10.65 Type 1 diabetes mellitus with hyperglycemia; E87.1 Hypo-osmolality and hyponatremia; E83.42 Hypomagnesemia; F41.1 Generalized anxiety disorder; F41.0 Panic disorder [episodic paroxysmal anxiety]; G47.00 Insomnia, unspecified; I51.7 Cardiomegaly; J06.9 Acute upper respiratory infection, unspecified; R79.1 Abnormal coagulation profile; E87.6 Hypokalemia; E03.9 Hypothyroidism, unspecified; E78.1 Pure hyperglyceridemia; F10.11 Alcohol abuse, in remission; E83.39 Other disorders of phosphorus metabolism; R53.82 Chronic fatigue, unspecified; E78.5 Hyperlipidemia, unspecified; E78.00 Pure hypercholesterolemia, unspecified; D64.9 Anemia, unspecified; Z91.5 Personal history of self-harm; Z79.82 Long term (current) use of aspirin; Z79.899 Other long term (current) drug therapy; Z79.4 Long term (current) use of insulin; Z81.8 Family history of other mental and behavioral disorders